=== PATIENT | female | born 1945 | race African-American/Black ===

== ENCOUNTER 2017-02-14 09:07 | Emergency (ER) | payer MEDICARE ==
[2017-02-14] MEDS ORDERED: traMADol HCl 50 MG TAB ONE (10:57)
[2017-02-14 11:29] LABS: Bilirubin Negative (Negative); Blood, Urine Negative (Negative); Glucose, Urine (Dipstick) Negative (Negative); Ketone, Urine Negative (Negative); Nitrite Negative (Negative); Protein, Urine (Dipstick) Negative (Neg-Trace)
[2017-02-14 12:01] LABS: Anion Gap 10 mmol/L (10-20); BUN (Urea Nitrogen) 12 mg/dL (9.8-20.1); Calc. Creatinine Clearance 0 mL/min (70-130); Calcium 9.9 mg/dL (7.8-10.44); Carbon Dioxide 28 mmol/L (23-31); Chloride 105 mmol/L (98-107); Estimated GFR-MDRD 89
== END 2017-02-14 12:30 | disposition home or self-care (01) ==
LOC: ERS 09:07
DX: M54.5 Low back pain (principal); I10 Essential (primary) hypertension; E78.5 Hyperlipidemia, unspecified; E11.9 Type 2 diabetes mellitus without complications; E03.9 Hypothyroidism, unspecified; F17.220 Nicotine dependence, chewing tobacco, uncomplicated
CPT/HCPCS: 36415; 80048; 81003

== ENCOUNTER 2017-06-22 09:39 | Outpatient (CLI) | payer MEDICARE | END 2017-06-22 09:40 | disposition home or self-care (01) | LOC: BICMAMMO 09:39 | PROVIDERS: ATTEND Internal Medicine | DX: Z12.31 Encounter for screening mammogram for malignant neoplasm of breast (principal) | CPT/HCPCS: 77063; 77067 ==

== ENCOUNTER 2017-12-18 12:40 | Outpatient (CLI) | payer MEDICARE ==
--- NOTE | 2017-12-18 16:10 | ULT ---
THYROID ULTRASOUND: 12/18/17 HISTORY: Thyroid nodule. Patient has been on thyroid medicine for many years. There are no recent comparisons. The left lobe is small and atrophic in appearance. It is somewhat heterogeneous and it measures 2.2 x 0.8 x 0.7 cm. The right lobe appears to be involved with a large heterogenous nodular mass. This nodular mass appea rs to encompass the entire right lobe and is measured at 3.1 x 1.1 x 1.4 cm. There is a central compl ex cystic component. IMPRESSION: There is a dominant complex nodular mass involving the entire right lobe of the thyroid. POS: [facility]
== END 2017-12-18 12:41 | disposition home or self-care (01) ==
LOC: BICULT 12:40
PROVIDERS: ATTEND Internal Medicine
DX: E04.1 Nontoxic single thyroid nodule (principal)
CPT/HCPCS: 76536

== ENCOUNTER 2017-12-31 12:02 | Day surgery (SDC) | payer MEDICARE ==
[2017-12-30 12:30] VITALS: BMI 26.9
[2017-12-31 13:58] VITALS: BP 137/72; TEMP 97.4
--- NOTE | 2017-12-31 16:36 | ULT ---
SONOGRAPHIC GUIDED FINE NEEDLE ASPIRATION RIGHT THYROID LOBE MASS: FINDINGS: After explaining the procedure and answering all questions, sonographic evaluation confirms lobular c omplex mass at the right thyroid lobe. Sterile technique, buffered local anesthesia, sonographic guid ance and a medial approach were used to carefully advance at 25 gauge needle into the complex compone nt of the large right thyroid lobe mass. Position was confirmed with sonography. A total of four pass es were made and submitted to pathology for evaluation. Patient tolerated the procedure well and was dismissed in good condition. IMPRESSION: Technically successful sonographically guided FNA right thyroid lobe mass. Pathology is pending. POS: [facility]
== END 2017-12-31 13:50 | disposition home or self-care (01) ==
LOC: ULT 12:02
PROVIDERS: ATTEND Otolaryngology Plastic Surgery within the Head & Neck
PROC: 0GBH3ZX Excision of Right Thyroid Gland Lobe, Percutaneous Approach, Diagnostic (ICD-10-PCS; principal; 2017-12-31)
DX: E04.1 Nontoxic single thyroid nodule (principal); I10 Essential (primary) hypertension; E78.00 Pure hypercholesterolemia, unspecified; E11.9 Type 2 diabetes mellitus without complications; G25.81 Restless legs syndrome; Z79.82 Long term (current) use of aspirin; Z79.84 Long term (current) use of oral hypoglycemic drugs; Z79.899 Other long term (current) drug therapy; Z88.5 Allergy status to narcotic agent
CPT/HCPCS: 10022; 76942; 88173

== ENCOUNTER 2018-06-23 11:02 | Outpatient (CLI) | payer MEDICARE ==
--- NOTE | 2018-06-23 11:57 | MMO ---
Bilateral MAMMO Bilat Screen [facility]. CLINICAL HISTORY: Patient is 73 years old and is seen for screening. The patient has no family history of breast cancer. The patient has no personal history of cancer. VIEWS: The views performed were: bilateral craniocaudal with tomosynthesis; bilateral mediolateral oblique with tomosynthesis; and right craniocaudal. FILMS COMPARED: The present examination has been compared to prior imaging studies performed at [facility] on 08/27/1999, 10/28/2000, 10/29/2001, 01/18/2003, 01/31/2004, 04/02/2006, 05/10/2007, 05/25/2008, 05/29/2009, 06/03/2010, 06/05/2011, 06/07/2012, 06/10/2013, 06/13/2014, 06/19/2015, 06/19/2016 and 06/22/2017. MAMMOGRAM FINDINGS: There are scattered fibroglandular densities. There are stable benign appearing calcifications seen in the left breast. There are no suspicious masses, suspicious calcifications, or new areas of architectural distortion. IMPRESSION: THERE IS NO MAMMOGRAPHIC EVIDENCE OF MALIGNANCY. A ROUTINE FOLLOW-UP MAMMOGRAM IN 1 YEAR IS RECOMMENDED. THE RESULTS OF THIS EXAM WERE SENT TO THE PATIENT. ACR BI-RADS Category 2 - Benign finding MAMMOGRAPHY NOTE: 1. A negative mammogram report should not delay a biopsy if a dominant of clinically suspicious mass is present. 2. Approximately 10% to 15% of breast cancers are not detected by mammography. 3. Adenosis and dense breasts may obscure an underlying neoplasm.
== END 2018-06-23 11:03 | disposition home or self-care (01) ==
LOC: BICMAMMO 11:02
PROVIDERS: ATTEND Internal Medicine
DX: Z12.31 Encounter for screening mammogram for malignant neoplasm of breast (principal)
CPT/HCPCS: 77063; 77067

== ENCOUNTER 2018-09-22 06:37 | Outpatient (CLI) | payer MEDICARE ==
--- NOTE | 2018-09-22 07:54 | ULT ---
TRANSABDOMINAL TRANSVAGINAL PELVIC ULTRASOUND DATE:: 09/22/2018 12:00 AM CLINICAL HISTORY: Upper abdominal pain. COMPARISON: None. TECHNIQUE: Grayscale, color Doppler and spectral Doppler images were obtained of the pelvis see a tra nsabdominal transvaginal approach Uterus: Size: 5.7 x 4.4 x 3.5 cm Mass: None Cervix: Not well seen Endometrium: Not well seen Endometrial Thickness: Not well seen Ovaries: Overlying bowel gas limited the exam. Right and left ovary weren't seen Cul-de-sac: No free fluid IMPRESSION: Uterus appears within normal limits for age.
--- NOTE | 2018-09-22 08:00 | ULT ---
ABDOMINAL ULTRASOUND: HISTORY: Right-sided abdominal pain. FINDINGS: The patient is post cholecystectomy. There are surgical clips in the gallbladder fossa, noted on the CT scan of 01/16/2014. The liver demonstrates a homogeneous echotexture without focal mass or intra hepatic ductal dilatation. The pancreas is not well visualized due to overlying bowel gas. The comm on duct measures 1.7 cm in diameter. The right kidney is normal. The left kidney measures 13.7 cm i n length. There is a 1.7 cm cyst in the left kidney. No hydronephrosis is seen on either side. No free fluid is identified. The visualized portions of the aorta and IVC are unremarkable. IMPRESSION: 1. Status post cholecystectomy with a dilated common bile duct. 2. Left renal cyst. 3. Mild splenomegaly. POS: [facility]
--- NOTE | 2018-09-22 08:17 | RAD ---
EXAM: XR Thoracic Spine 3 V STANDARD DATE: 09/22/2018 12:00 AM INDICATION: Back pain COMPARISON: None. FINDING: There is multilevel disc degenerative disease. There are 12 rib-bearing thoracic vertebra. Spinal alignment is within normal limits. The visualized lungs are clear. Cholecystectomy clips are present within the right upper quadrant. IMPRESSION:Mild thoracic spondylosis
--- NOTE | 2018-09-22 08:21 | RAD ---
XR Lumbar Spine 2 Or 3 View: 09/22/2018 12:00 AM CLINICAL INDICATION: Back pain COMPARISON: May 30, [id number] FINDINGS: Fracture:No fracture. Arthropathy:Multilevel degenerative change of the lumbar spine with facet sclerosis at multiple level s. There is degenerative disc space narrowing at L5-S1. Postoperative fusion of L4-5 is similar in appearance. Incidental findings:Large volume retained fecal material throughout the colon IMPRESSION: 1. Postoperative lumbar spine with multilevel degenerative change. 2. Constipation.
== END 2018-09-22 06:38 | disposition home or self-care (01) ==
LOC: BICULT 06:37
PROVIDERS: ATTEND Internal Medicine
DX: M54.9 Dorsalgia, unspecified (principal); R93.3 Abnormal findings on diagnostic imaging of other parts of digestive tract; R93.89 Abnormal findings on diagnostic imaging of other specified body structures; M47.816 Spondylosis without myelopathy or radiculopathy, lumbar region; M47.814 Spondylosis without myelopathy or radiculopathy, thoracic region; K59.00 Constipation, unspecified; N28.1 Cyst of kidney, acquired; R16.1 Splenomegaly, not elsewhere classified; K83.8 Other specified diseases of biliary tract; Z98.1 Arthrodesis status; Z90.49 Acquired absence of other specified parts of digestive tract
CPT/HCPCS: 72072; 72100; 76700; 76856; 93976

== ENCOUNTER 2018-10-15 09:35 | Outpatient (CLI) | payer MEDICARE ==
--- NOTE | 2018-10-15 11:54 | MRI ---
MRI ABDOMEN WITH AND WITHOUT IV CONTRAST MRCP: HISTORY: Dilated common bile duct on recent ultrasound. Anemia, right upper quadrant pain, ultrasound scan ab dominal, constipation. CORRELATION: Abdominal ultrasound of 09/22/2018. FINDINGS: The patient is post cholecystectomy. The common bile duct measures 1.4 cm in the proximal aspect and 6 mm distally. No definite evidence of choledocholithiasis is seen. The spleen is enlarged measuri ng 14.3 cm in length. No hepatic mass is seen. There are small cysts in the kidneys. The pancreas and adrenal glands are normal. No abnormal postcontrast enhancement is noted. The bone marrow signal is normal. No free fluid or lymphadenopathy is seen. There is no evidence of aneurysmal dilatation of the abdominal aorta. IMPRESSION: 1. Mild splenomegaly. 2. Renal cyst. 3. Status post cholecystectomy with biliary ductal dilatation likely due to reservoir effect. POS: [facility]
[2018-10-15] MEDS ORDERED: Gadobenate Dimeglumine 529 MG/1 ML (20ML VIAL) ONE (16:09)
== END 2018-10-15 09:36 | disposition home or self-care (01) ==
LOC: BICMRI 09:35
PROVIDERS: ATTEND Physician Assistant Medical
DX: R10.11 Right upper quadrant pain (principal); G89.29 Other chronic pain; K59.00 Constipation, unspecified; D64.9 Anemia, unspecified; R93.89 Abnormal findings on diagnostic imaging of other specified body structures; R16.1 Splenomegaly, not elsewhere classified; N28.1 Cyst of kidney, acquired; K83.8 Other specified diseases of biliary tract; Z90.49 Acquired absence of other specified parts of digestive tract
CPT/HCPCS: 74183; 82565; A9577

== ENCOUNTER 2019-02-17 14:35 | Outpatient (CLI) | payer MEDICARE ==
--- NOTE | 2019-02-17 15:22 | ULT ---
Thyroid sonogram HISTORY: Multinodular thyroid. FINDINGS: Right thyroid lobe measures up to 3.0 cm. Heterogeneous echotexture without focal mass. Sli ght lobulation of the contours. Left thyroid lobe measures up to 2.2 cm, again with heterogeneous echotexture and lobular contour. No focal mass. Isthmus is 0.4 cm. IMPRESSION: Heterogeneous echotexture of the small thyroid gland. Less masslike appearance than on th e previous study from 2018. No aggressive lesion is evident.
== END 2019-02-17 14:36 | disposition home or self-care (01) ==
LOC: BICULT 14:35
PROVIDERS: ATTEND Internal Medicine
DX: E04.2 Nontoxic multinodular goiter (principal)
CPT/HCPCS: 76536

== ENCOUNTER 2019-12-14 14:24 | Outpatient (CLI) | payer MEDICARE ==
--- NOTE | 2019-12-14 16:06 | RAD ---
LEFT FOOT 3 VIEWS: Date: 12/14/2019 HISTORY: Enthesiopathy. FINDINGS: Tarsals unremarkable. Metatarsals and phalanges unremarkable. MTP joints and IP joints unremarkable. IMPRESSION: No acute findings. POS: [facility]
== END 2019-12-14 14:25 | disposition home or self-care (01) ==
LOC: BICRAD 14:24
PROVIDERS: ATTEND Podiatrist
DX: M77.9 Enthesopathy, unspecified (principal)

== ENCOUNTER 2020-03-29 08:57 | Day surgery (SDC) | payer MEDICARE ==
[2020-03-29] MEDS ORDERED: Sodium Chloride 0.9% 20 ML ONE (09:08)
[2020-03-29] MEDS ORDERED: diphenhydrAMINE 25 MG CAP PO SCH (09:15)
[2020-03-29] MEDS ORDERED: Acetaminophen 500 MG TAB PO SCH (09:15)
[2020-03-29 15:17] VITALS: BP 117/57; TEMP 98.1
== END 2020-03-29 15:17 | disposition home or self-care (01) ==
LOC: ONC/OP 08:57
PROVIDERS: ATTEND Internal Medicine Medical Oncology
PROC: 30233N1 Transfusion of Nonautologous Red Blood Cells into Peripheral Vein, Percutaneous Approach (ICD-10-PCS; principal; 2020-03-29)
DX: D64.9 Anemia, unspecified (principal); Z88.5 Allergy status to narcotic agent
CPT/HCPCS: 36415; 36430; 83010; 86140; 86850; 86900; 86901; P9016; Q0163

== ENCOUNTER 2020-06-07 14:28 | Outpatient (CLI) | payer MEDICARE | END 2020-06-07 14:29 | disposition home or self-care (01) | LOC: BICMAMMO 14:28 | PROVIDERS: ATTEND Internal Medicine | DX: Z12.31 Encounter for screening mammogram for malignant neoplasm of breast (principal) | CPT/HCPCS: 77063; 77067 ==

== ENCOUNTER 2022-06-30 13:57 | Outpatient (CLI) | payer MEDICARE | END 2022-06-30 13:58 | disposition home or self-care (01) | LOC: BICMAMMO 13:57 | PROVIDERS: ATTEND Internal Medicine | DX: Z12.31 Encounter for screening mammogram for malignant neoplasm of breast (principal); M85.851 Other specified disorders of bone density and structure, right thigh; Z78.0 Asymptomatic menopausal state | CPT/HCPCS: 77063; 77067; 77080 ==

== ENCOUNTER 2022-10-06 10:02 | Outpatient (CLI) | payer MEDICARE | END 2022-10-06 10:03 | disposition home or self-care (01) | LOC: BICMRI 10:02 | PROVIDERS: ATTEND Internal Medicine | DX: M54.50 Low back pain, unspecified (principal); M48.061 Spinal stenosis, lumbar region without neurogenic claudication; M47.816 Spondylosis without myelopathy or radiculopathy, lumbar region; M51.36 Other intervertebral disc degeneration, lumbar region; M51.24 Other intervertebral disc displacement, thoracic region | CPT/HCPCS: 72148 ==

== ENCOUNTER 2024-11-08 10:23 | Outpatient (CLI) | payer MEDICARE | END 2024-11-08 10:24 | disposition home or self-care (01) | LOC: BICCT 10:23 | PROVIDERS: ATTEND Internal Medicine | DX: R91.8 Other nonspecific abnormal finding of lung field (principal) | CPT/HCPCS: 71250 ==